=== PATIENT | female | born 1940 | race Caucasian/White ===

== ENCOUNTER 2016-10-18 15:28 | Emergency (ER) | payer MEDICARE ==
[2016-10-18 16:23] LABS: #Basophils 0.1 thou/uL (0.0-0.2); #Eosinphils 0.2 thou/uL (0.0-0.7); #Lymphocytes 1.1 thou/uL (1.20-3.40); #Monocytes 0.6 thou/uL (0.11-0.59); #Neutrophils 5.6 thou/uL (1.40-6.50); %Eosinophils 2.8 % (0.0-10.0); %Monocytes 7.7 % (0.0-10.0); Hematocrit 39.8 % (36.0-47.0); Mean Platelet Volume 6.9 fL (7.4-10.4); Red Blood Cell (RBC) Count 3.91 mill/uL (4.20-5.40); White Blood Cell (WBC) Count 7.6 thou/uL (4.8-10.8)
[2016-10-18 16:31] LABS: PTT 27.1 SEC (22.9-36.1); Prothrombin Time 13.6 SEC (12.0-14.7)
[2016-10-18] MEDS ORDERED: Acetaminophen 500 MG TAB ONE (17:06)
[2016-10-18] MEDS ORDERED: traMADol HCl 50 MG TAB ONE (17:06)
--- NOTE | 2016-10-18 18:36 | ERRECORD ---
[facility] EMERGENCY RECORD HPI FALL (15:54 JPIP) CHIEF COMPLAINT: Patient presents for evaluation of fall, from standing, landing on hard surface, landing on head, Patient presents for evaluation of Patient had a mechanical fall and landed on the back of her head. HISTORIAN: History provided by patient. LOCATION: Symptoms are localized, most severe to occipital area of her head and mild pain in her neck. she states she bumped her right elbow also. TIME COURSE: Sudden onset of symptoms, 1, hours prior to arrival, There has been no change in the patient's symptoms over time, are constant. SEVERITY: Current severity of pain rated as 7/10. ASSOCIATED WITH: Associated with neck pain, mild, No associated chest pain, No associated abdominal pain, No associated back pain, No associated clavicle pain, No associated shoulder pain, Associated with elbow pain, on the right, No associated wrist pain, No associated hand pain, No associated finger pain, No associated hip pain, No associated knee pain, No associated ankle pain, No associated foot pain, No associated abrasion(s), Associated with contusion(s), to the scalp, Associated with occipital area, No associated alcohol use, No associated blurred vision, No associated loss of consciousness, No associated near syncope, No associated neurological symptoms prior to arrival, No associated numbness, No associated syncope, No associated vomiting. EXACERBATED BY: Patient's condition exacerbated by head reasting on the contused area. RELIEVED BY: Patient's condition relieved by nothing. RISK FACTORS: Risk factors for spinal injury, include age, Risk factors for intracranial bleed, include age and coumadin thereapy. ROS (15:58 JPIP) CONSTITUTIONAL: Historian denies lethargy. EYES: Historian denies eye redness, denies vision changes. ENT: Historian denies epistaxis, denies otorrhea, denies rhinorrhea. CARDIOVASCULAR: Historian denies chest pain, denies syncope. RESPIRATORY: Historian denies cough, denies shortness of breath. GI: Historian denies abdominal pain, denies nausea, denies vomiting. GENITOURINARY FEMALE: Historian denies incontinence. MUSCULOSKELETAL: Historian denies back pain, reports fall, reports injury, reports neck pain. NEUROLOGIC: Historian denies confusion, denies dizziness, reports headache, denies lethargy, denies mental status changes, denies paresthesias. NOTES: All systems reviewed, negative except as described above. &a-1R&a+25V*p+0X*w6669T*c202B*c15G*c2P*p-0X&a-25V&a+1R Name: Estefany Santos : 1940 F76 MedRec: [id number] AcctNum: [id number] Prepared: Sadia Oct 18, 2016 18:33 by Interface Page 1 of 5 pMD [facility] EMERGENCY RECORD PAST MEDICAL HISTORY MEDICAL HISTORY: Notes: TIA, Past medical history includes cardiac history, coronary artery disease, arrhythmia, atrial fibrillation, Past medical history includes endocrine disease, hypothyroidism, Past medical history includes gastrointestinal disease, gastroesophageal reflux disease, Past medical history includes hematological history, iron deficiency anemia, Past medical history includes history of hyperlipidemia, history of hypertension. (15:35 KMOR) FEMALE SURGICAL HISTORY: left shoulder surgery , knee surgery, pacemaker, Surgical history of cholecystectomy, Surgical history of hysterectomy. (15:35 KMOR) PSYCHIATRIC HISTORY: Psychiatric history includes, depression. (15:35 KMOR) SOCIAL HISTORY: Patient denies alcohol use, Patient denies drug use, Patient has no smoking history. (15:35 KMOR) NOTES: Nursing records reviewed, Medication list reviewed. (16:04 JPIP) KNOWN ALLERGIES codeine sulfate: Reaction: Rash Lortab: Reaction: Nausea CURRENT MEDICATIONS alendronate: TABLET : Strength - 70 mg : ORAL Patient Dose: 70 mg Oral once a week. (15:41 KMOR) atorvastatin: TABLET : Strength - 10 mg : ORAL Patient Dose: 10 mg Oral once a day. (15:41 KMOR) Ambien: TABLET : Strength - 5 mg : ORAL Patient Dose: 5 mg Oral once a day (at bedtime). (15:41 KMOR) Elavil: TABLET : Strength - 100 mg : ORAL Patient Dose: 100 mg Oral once a day (at bedtime). (15:42 KMOR) Vitamin D2: CAPSULE : Strength - 1,000 unit : ORAL Patient Dose: 2000 units Oral once a day. (15:43 KMOR) iron: CAPSULE : Strength - 40 mg : ORAL Patient Dose: 25 mg Oral once a day. (15:43 KMOR) levothyroxine: TABLET : Strength - 137 mcg : ORAL Patient Dose: 137 mcg Oral once a day. (15:43 KMOR) sotalol: &a-1R&a+25V*p+0X*c5181C*c202B*c15G*c2P*p-0X&a-25V&a+1R Name: Estefany Santos : 1940 F76 MedRec: [id number] AcctNum: [id number] Prepared: Sadia Oct 18, 2016 18:33 by Interface Page 2 of 5 pMD [facility] EMERGENC[facility] RECORD TABLET : Strength - 120 mg : ORAL Patient Dose: 120 mg Oral once a day. (15:44 KMOR) furosemide: TABLET : Strength - 40 mg : ORAL Patient Dose: 40 mg once a day. (15:44 KMOR) omeprazole: CAPSULE,DELAYED RELEASE (ENTERIC COATED) : Strength - 20 mg : ORAL Patient Dose: 20 mg once a day. (15:45 KMOR) Coreg: TABLET : Strength - 6.25 mg : ORAL Patient Dose: 6.25 mg Oral 2 times a day. (15:45 KMOR) Coumadin: TABLET : Strength - 10 mg : ORAL Patient Dose: 10 mg Oral.as directed. (15:46 KMOR) VITAL SIGNS VITAL SIGNS: BP: 156/80, Pulse: 72, Resp: 18, Temp: 98.1 (Oral), Time: 10/18/2016 15:30. (15:30 KMOR) Pain: 7, O2 sat: 99 on Room Air, Time: 10/18/2016 15:57. (15:57 KMOR) BP: 117/51, Pulse: 61, Resp: 18, O2 sat: 99 on Room Air, Time: 10/18/2016 16:26. (16:26 KMOR) BP: 119/63, Pulse: 57, Resp: 16, Pain: 5, O2 sat: 97 on Room Air, Time: 10/18/2016 17:00. (17:00 KMOR) BP: 105/71, Pulse: 64, Resp: 16, Temp: 98.3 (Oral), Pain: 4, O2 sat: 100 on Room Air, Time: 10/18/2016 18:10. (18:10 LSMI) (18:29 LSMI) PHYSICAL EXAM (15:59 JP) CONSTITUTIONAL: Vital signs reviewed, Patient afebrile, Pulse normal, Blood pressure normal, Respiratory rate normal, Patient appears in pain, in mild pain distress, Patient alert and oriented to person, place and time. HEAD: Head exam included findings of, no Gonzalez's sign, No raccoon eyes, Contusion to occipital, No abrasions, No lacerations, normocephalic. EYES: Eye exam included findings of eyelids normal to inspection, Pupils not equally round and reactive to light, Left pupil 2 mm in size, round in shape, Right pupil 2 mm in size, round in shape, BRUCE intraocular lens implants, Conjunctiva normal, Sclera normal, no periorbital ecchymosis, no periorbital edema, no periorbital erythema. ENT: Ear exam normal, external ear normal, tympanic membranes normal, no foreign body, no drainage, no bleeding, Pharynx exam normal, not injected, no swelling, symmetrical, Uvula exam normal, midline, no edema, Mouth exam normal, mucous membranes moist, Teeth with, dentures. NECK: Neck exam included findings of, range of motion limited by cervical collar, Trachea midline, no tenderness. RESPIRATORY CHEST: Respiratory exam included findings of no respiratory distress, Breath sounds clear, No wheezing, No rales, No &a-1R&a+25V*p+0X*t6875X*c202B*c15G*c2P*p-0X&a-25V&a+1R Name: Estefany Santos : 1940 F76 MedRec: [id number] AcctNum: [id number] Prepared: [facility] Oct 18, 2016 18:33 by Interface Page 3 of 5 pMD [facility] EMERGENCY RECORD rhonchi, Breath sounds not absent, Breath sounds not diminished. CARDIOVASCULAR: Cardiovascular exam included findings of heart rate regular rate and rhythm, Heart sounds normal, no murmurs, no rub. ABDOMEN FEMALE: Abdominal exam included findings of abdomen nontender, Liver normal, Spleen normal, no distension, no mass, no pulsatile masses, no peritoneal signs, no rigidity, no guarding, no rebound. BACK: Back exam included findings of normal inspection, no tenderness, no costovertebral angle tenderness. UPPER EXTREMITY: Upper extremity exam included findings of inspection abnormal, contusions present, very superficial abrasion to the right elbow. 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 LOWER EXTREMITY: Left pelvis exam normal, Right pelvis exam normal, Left hip exam normal, Right hip exam normal, Left thigh exam normal, Right thigh exam normal, Left knee exam normal, Right knee exam normal, Left lower leg exam normal, Right lower leg exam normal, Left ankle exam normal, Right ankle exam normal, Left foot exam normal, Right foot exam normal. NEURO: Neuro exam findings include patient oriented to person, place and time, Te[place]dale coma scale 15, Speech normal. SKIN: Skin exam included findings of skin warm, dry, and normal in color, very superficial abrasion to the right elbow and proximal ulna. PSYCHIATRIC: Psychiatric exam included findings of patient oriented to person place and time, Normal affect. RADIOLOGYINTERPRETATION (16:04 JPIP) HEAD: Head CT negative, without contrast, no bleed, no mass, no acute changes. NECK: Cervical spine CT negative, no fracture, no subluxation, no bony lesion, no cord compression. ICE RINK ATTENDANT: Preliminary review of CT scans by, Radiologist. MEDICATION ADMINISTRATION SUMMARY Drug Name: *Tylenol Extra Strength, Dose Ordered: 1 g, Route: Oral, Status: Given, Time: 17:09 10/18/2016, Drug Name: *traMADol, Dose Ordered: 100 mg, Route: Oral, Status: Given, Time: 17:08 10/18/2016, *Additional information available in notes, Detailed record available in Medication Service section. DOCTOR NOTES (15:58 JPIP) TEXT: Backboard removed by ED with spinal stabilization. PROBLEM LIST No recorded problems &a-1R&a+25V*p+0X*l9605C*c202B*c15G*c2P*p-0X&a-25V&a+1R Name: Estefany Santos : 1940 F76 MedRec: [id number] AcctNum: [id number] Prepared: [facility] Oct 18, 2016 18:33 by Interface Page 4 of 5 pMD [facility] EMERGENC[facility] RECORD DIAGNOSIS (16:49 JPIP) FINAL: PRIMARY: Head injury, no LOC, ADDITIONAL: elbow abrasion, elbow contusion, scalp hematoma. PRESCRIPTION No recorded prescriptions DISPOSITION PATIENT: Disposition Type: Discharge, Disposition: *Discharge Home, Condition: Good. (16:49 BENY) Patient left the department. (18:31 KMSANTI) Martínez: BENY=DO Overton Joseph KMOR=BRANDON Yu, Fide LSMI=REBEKAH Ellis Leah &a-1R&a+25V*p+0X*c3815V*c202B*c15G*c2P*p-0X&a-25V&a+1R Name: Estefany Santos : 1940 F76 MedRec: [id number] AcctNum: [id number] Prepared: Sadia Oct 18, 2016 18:33 by Interface Page 5 of 5 pMD MTDD
--- NOTE | 2016-10-18 18:42 | PICIS ---
[facility] EMERGENCY RECORD TRIAGE (SatOct 18, 2016 15:29 KMOR) TRIAGE NOTES: Fall from standing, hit back of head, no loc. (SatOct 18, 2016 15:29 KMOR) PATIENT: NAME: Estefany Santos, AGE: 76, GENDER: female, : Sat1940, TIME OF GREET: SatOct 18, 2016 15:28, PREFERRED LANGUAGE: Danish, ETHNICITY: Not or , ECODE BILLING MAP: [facility], SSN: [id number], Zip Code: [address], KG WEIGHT: 106.59, PHONE: , , , PERSON ID: [id number], PAYMENT: [employer], PCP: Andrew HORN KRISTI. (SatOct 18, 2016 15:29 KMOR) COMPLAINT: Fall. (SatOct 18, 2016 15:29 KMOR) ADMISSION: URGENCY: 3 Urgent, ADMISSION SOURCE: Home, AMBULANCE: [facility], TRANSPORT: AMBULANCE - [facility], BED: ER -04. (SatOct 18, 2016 15:29 KMOR) ASSESSMENT: Assessment: A&XO4. RR EVEN AND UNLABORED., Symptoms began 30 min ago. (15:35 KMOR) PAIN: Patient complains of pain described as, aching, on a scale 0-10 patient rates pain as 7, Location HEAD. (15:35 KMOR) IMMUNIZATIONS: Flu vaccine up to date, Tetanus not up to date, Pneumococcal vaccine up to date. (15:35 KMOR) SIRS SCORING: Heart Rate 55-109 (0), Temp range 96.8-101.1 (0), respiratory rate 12-24 (0), Mental Status altered: no (0), Infection or Suspected Infection: No. (15:35 KMOR) TRIAGE SCREENING: Patient denies suicidal ideation, Patient denies presence of domestic violence. (15:35 KMOR) LMP: LMP: Hysterectomy. (15:35 KMOR) PROVIDERS: TRIAGE NURSE: Fide Yu RN. (SatOct 18, 2016 15:29 KMOR) VITAL SIGNS: BP 156/80, Pulse 72, Resp 18, Temp 98.1, (Oral), Time 10/18/2016 15:30. (15:30 KMOR) KNOWN ALLERGIES codeine sulfate: Reaction: Rash Lortab: Reaction: Nausea CURRENT MEDICATIONS alendronate: TABLET : Strength - 70 mg : ORAL Patient Dose: 70 mg Oral once a week. (15:41 KMOR) atorvastatin: TABLET : Strength - 10 mg : ORAL Patient Dose: 10 mg Oral once a day. (15:41 KMOR) Ambien: TABLET : Strength - 5 mg : ORAL Patient Dose: 5 mg Oral once a day (at bedtime). (15:41 KMOR) Elavil: TABLET : Strength - 100 mg : ORAL Patient Dose: 100 mg Oral once a day (at bedtime). (15:42 &a-1R&a+25V*p+0X*c3698H*c202B*c15G*c2P*p-0X&a-25V&a+1R Name: Estefany Santos : 1940 F76 MedRec: [id number] AcctNum: [id number] Prepared: [facility] Oct 18, 2016 18:39 by Interface Page 1 of 10 pMD [facility] EMERGENCY RECORD KMOR) Vitamin D2: CAPSULE : Strength - 1,000 unit : ORAL Patient Dose: 2000 units Oral once a day. (15:43 KMOR) iron: CAPSULE : Strength - 40 mg : ORAL Patient Dose: 25 mg Oral once a day. (15:43 KMOR) levothyroxine: TABLET : Strength - 137 mcg : ORAL Patient Dose: 137 mcg Oral once a day. (15:43 KMOR) sotalol: TABLET : Strength - 120 mg : ORAL Patient Dose: 120 mg Oral once a day. (15:44 KMOR) furosemide: TABLET : Strength - 40 mg : ORAL Patient Dose: 40 mg once a day. (15:44 KMOR) omeprazole: CAPSULE,DELAYED RELEASE (ENTERIC COATED) : Strength - 20 mg : ORAL Patient Dose: 20 mg once a day. (15:45 KMOR) Coreg: TABLET : Strength - 6.25 mg : ORAL Patient Dose: 6.25 mg Oral 2 times a day. (15:45 KMOR) Coumadin: TABLET : Strength - 10 mg : ORAL Patient Dose: 10 mg Oral.as directed. (15:46 KMOR) VITAL SIGNS VITAL SIGNS: BP: 156/80, Pulse: 72, Resp: 18, Temp: 98.1 (Oral), Time: 10/18/2016 15:30. (15:30 KMOR) Pain: 7, O2 sat: 99 on Room Air, Time: 10/18/2016 15:57. (15:57 KMOR) BP: 117/51, Pulse: 61, Resp: 18, O2 sat: 99 on Room Air, Time: 10/18/2016 16:26. (16:26 KMOR) BP: 119/63, Pulse: 57, Resp: 16, Pain: 5, O2 sat: 97 on Room Air, Time: 10/18/2016 17:00. (17:00 KMOR) BP: 105/71, Pulse: 64, Resp: 16, Temp: 98.3 (Oral), Pain: 4, O2 sat: 100 on Room Air, Time: 10/18/2016 18:10. (18:10 LSMI) (18:29 LSMI) NURSING ASSESSMENT: NEURO (15:38 KMOR) GCS: (6) Obeying command:, (5) Orientated:, (4) Spontaneous eye opening., Result: 15. CONSTITUTIONAL: Patient arrives, via stretcher, via [facility], Unsteady gait, Lift to cart, History obtained from patient, Patient appears, uncomfortable, Patient cooperative, Patient alert, Oriented to person, place and time, Skin warm, Skin dry, Skin normal in color, Mucous membranes pink, Mucous membranes moist, Patient is well-groomed, Patient complains of Fall, Patient reports tripping over feet while walking and falling and hitting head. No loc, no nausea or vomiting. &a-1R&a+25V*p+0X*p7218M*c202B*c15G*c2P*p-0X&a-25V&a+1R Name: Estefany Santos Brenden : 1940 F76 MedRec: [id number] AcctNum: [id number] Prepared: [facility] Oct 18, 2016 18:39 by Interface Page 2 of 10 pMD [facility] EMERGENCY RECORD PAIN: aching pain, throbbing pain, to the occipital region, on a scale 0-10 patient rates pain as 7. NEURO: Pupils equally round and reactive to light, Left pupil 2 mm in size, Right pupil 2 mm in size, Able to close eyes, Face symmetrical, Speech normal, no ptosis, no nystagmus, no facial numbness, no swelling, GCS:, Eye opening: (4) - Spontaneous, Verbal: (5) - Oriented/conversive, Motor: (6) - Obeys commands/Spontaneous, GCS Total: 15, Hand grasps equal, Foot press equal, no associated dizziness present, no associated syncopal episode, no associated vomiting, no associated weakness, Notes: hematoma to left back of head. No open lacerations. ENT: Ear assessment findings include ear normal to inspection, Nasal assessment findings include nose normal to inspection, Sinuses normal, Nasal mucosa normal, Mouth and throat assessment findings include mouth inspection normal, Uvula normal, Tonsils normal, Mucous membranes pink, and moist, Able to swallow, Speech normal. NOTES: Patient tolerated procedure well. NURSING PROCEDURE: COMMUNICATIONS (16:02 LSMI) COMMUNICATIONS: Physician, DR MCCABE CALLED WITH CT REPORT NEGATIVE CT HEAD AND C SPINE. DR OVERTON AWARE. NURSING PROCEDURE: DISCHARGE NOTE (18:10 LSMI) DISCHARGE: Patient discharged to home, in a wheelchair, family driving, accompanied by //partner, Summary of Care printed/ provided, Transition record given to patient, Discharge instructions given to patient, Simple or moderate discharge teaching performed. NURSING PROCEDURE: NEURO CHECK (16:48 KMOR) GCS/NEURO/PUPILS: [place] Coma Scale:, Eye opening: (4) - Spontaneous, Verbal: (5) - Oriented/conversive, Motor: (6) - Obeys commands/Spontaneous, GCS Total: 15, Neuro check findings include movement normal to all extremities, Pupils equally round and reactive to light. NOTES: Patient tolerated procedure well. NURSING PROCEDURE: NURSE NOTES NURSES NOTES: Notes: Ice pack applied to back of head. (16:35 KMOR) Notes: Dr. Overton in to review results with patient. (16:48 KMOR) Notes: Patient resting back in bed, rr even and unlabored. awaiting to return for discharge, Denies needs at this time. (17:41 KMOR) NURSING PROCEDURE: SPINE PRECAUTIONS PATIENT IDENTIFIER: Patient actively involved in identification process, Patient's identity verified by patient stating name, &a-1R&a+25V*p+0X*q4142W*c202B*c15G*c2P*p-0X&a-25V&a+1R Name: Estefany Santos : 1940 F76 MedRec: [id number] AcctNum: [id number] Prepared: SatOct 18, 2016 18:39 by Interface Page 3 of 10 pMD [facility] EMERGENCY RECORD Patient's identity verified by patient stating date. 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 (15:37 KMOR) REMOVAL: Long board removed, by order from Dr. Dr. Overton, removed by Dr. Overton. (15:37 KMOR) Cervical collar removed, by order from Dr. Overton, removed by Dr. Overton. (16:05 KMOR) FOLLOW-UP: After procedure, airway patent, After procedure, movement to extremities, After procedure, no numbness to extremities, After procedure, no tingling to extremities. (16:07 KMOR) NURSING PROCEDURE: TRANSPORT TO TESTS PATIENT IDENTIFIER: Patient actively involved in identification process, Patient's identity verified by patient stating name, Patient's identity verified by patient stating date. (15:43 KMOR) TRANSPORT TO TESTS: Transport indicated to facilitate diagnosis, Patient transported to CT scan, via cart, Accompanied by x-ray nanotechnician. (15:43 KMOR) FOLLOW-UP: After procedure, patient returned to emergency department. (15:55 KMOR) ORDER DETAILS Order Name: B type Natriuretic Peptide, Status: Active, Time: 15:58 10/18/2016, User: BENY, - Ordered for: DO Overton Joseph, - Entered by: DO Overton Joseph - SatOct 18, 2016 15:58, - Quantity: 1, Order Name: CBC with Differential, Status: Active, Time: 15:58 10/18/2016, User: BENY, - Ordered for: DO Overton Joseph, - Entered by: DO Overton Joseph - Sadia Oct 18, 2016 15:58, - Quantity: 1, Order Name: COLD THERAPY, Status: Done, Time: 16:32 10/18/2016, User: LILI, - Ordered for: DO Overton Joseph, - Entered by: DO Overton Joseph - [facility] Oct 18, 2016 16:27, - Quantity: 1, Order Name: CT Brain WO Con, Status: Active, Time: 15:32 10/18/2016, User: BENY, - Ordered for: DO Overton Joseph, - Entered by: DO Overton Joseph - [facility] Oct 18, 2016 15:32, - Quantity: 1, Order Name: CT Cervical Spine WO Con, Status: Active, Time: 15:32 10/18/2016, User: BENY, - Ordered for: DO Overton Joseph, &a-1R&a+25V*p+0X*j4166M*c202B*c15G*c2P*p-0X&a-25V&a+1R Name: Estefany Santos : 1940 F76 MedRec: [id number] AcctNum: [id number] Prepared: SatOct 18, 2016 18:39 by Interface Page 4 of 10 D [facility] EMERGENCY RECORD - Entered by: DO Overton Joseph - [facility] Oct 18, 2016 15:32, - Quantity: 1, Order Name: Protime with INR, Status: Active, Time: 15:58 10/18/2016, User: BENY, - Ordered for: DO Overton Joseph, - Entered by: DO Overton Joseph - SatOct 18, 2016 15:58, - Quantity: 1, Order Name: PTT, Status: Active, Time: 15:58 10/18/2016, User: BENY, - Ordered for: DO Overton Joseph, - Entered by: DO Overton Joseph - [facility] Oct 18, 2016 15:58, - Quantity: 1. MEDICATION ADMINISTRATION SUMMARY Drug Name: *Tylenol Extra Strength, Dose Ordered: 1 g, Route: Oral, Status: Given, Time: 17:09 10/18/2016, Drug Name: *traMADol, Dose Ordered: 100 mg, Route: Oral, Status: Given, Time: 17:08 10/18/2016, *Additional information available in notes, Detailed record available in Medication Service section. MEDICATION SERVICE traMADol: Order: traMADol (tramadol HCl) - Dose: 100 mg : Oral POTENTIAL SEVERE INTERACTION: Elavil oral - Reviewed with patient POTENTIAL ALLERGY REACTION: 'Lortab [hydrocodone/hydrocodone bitartrate]', 'codeine sulfate [codeine/codeine sulfate]' - Reviewed with patient Schedule: Now Notes: Read back and verified, Verbal Order Ordered by: Braden Overton DO Entered by: Fide Yu RN [facility] Oct 18, 2016 17:05 , Acknowledged by: Fide Yu RN [facility] Oct 18, 2016 17:05 Documented as given by: Fide Yu RN [facility] Oct 18, 2016 17:08 Patient, Medication, Dose, Route and Time verified prior to administration. Amount given: 100mg, Site: Medication administered P.O., Patient appears Awake and alert- acceptable, Correct patient, time, route, dose and medication confirmed prior to administration, Patient advised of actions and side-effects prior to administration, Allergies confirmed and medications reviewed prior to administration, Patient in position of comfort, Side rails up, Cart in lowest position, Family at bedside. Tylenol Extra Strength: Order: Tylenol Extra Strength (acetaminophen) - Dose: 1 g : Oral POTENTIAL ALLERGY REACTION: 'Lortab [acetaminophen]' - Benefits outweigh risks, Reviewed with patient Schedule: Now Notes: Read back and verified, Verbal Order Ordered by: Braden Overton DO Entered by: Fide Yu RN [facility] Oct 18, 2016 17:03 , &a-1R&a+25V*p+0X*s9906D*c202B*c15G*c2P*p-0X&a-25V&a+1R Name: Estefany Santos : 1940 F76 MedRec: [id number] AcctNum: [id number] Prepared: SatOct 18, 2016 18:39 by Interface Page 5 of 10 pMD [facility] EMERGENCY RECORD Acknowledged by: Fide Yu RN [facility] Oct 18, 2016 17:03 Documented as given by: Fide Yu RN [facility] Oct 18, 2016 17:09 Patient, Medication, Dose, Route and Time verified prior to administration. Amount given: 1000mg, Site: Medication administered P.O., Patient appears Awake and alert- acceptable, Correct patient, time, route, dose and medication confirmed prior to administration, Patient advised of actions and side-effects prior to administration, Allergies confirmed and medications reviewed prior to administration, Patient in position of comfort, Side rails up, Cart in lowest position, Family at bedside. HPI FALL (15:54 JPIP) CHIEF COMPLAINT: Patient presents for evaluation of fall, from standing, landing on hard surface, landing on head, Patient presents for evaluation of Patient had a mechanical fall and landed on the back of her head. HISTORIAN: History provided by patient. LOCATION: Symptoms are localized, most severe to occipital area of her head and mild pain in her neck. she states she bumped her right elbow also. TIME COURSE: Sudden onset of symptoms, 1, hours prior to arrival, There has been no change in the patient's symptoms over time, are constant. SEVERITY: Current severity of pain rated as 7/10. ASSOCIATED WITH: Associated with neck pain, mild, No associated chest pain, No associated abdominal pain, No associated back pain, No associated clavicle pain, No associated shoulder pain, Associated with elbow pain, on the right, No associated wrist pain, No associated hand pain, No associated finger pain, No associated hip pain, No associated knee pain, No associated ankle pain, No associated foot pain, No associated abrasion(s), Associated with contusion(s), to the scalp, Associated with occipital area, No associated alcohol use, No associated blurred vision, No associated loss of consciousness, No associated near syncope, No associated neurological symptoms prior to arrival, No associated numbness, No associated syncope, No associated vomiting. EXACERBATED BY: Patient's condition exacerbated by head reasting on the contused area. RELIEVED BY: Patient's condition relieved by nothing. RISK FACTORS: Risk factors for spinal injury, include age, Risk factors for intracranial bleed, include age and coumadin thereapy. ROS (15:58 JPIP) CONSTITUTIONAL: Historian denies lethargy. EYES: Historian denies eye redness, denies vision changes. ENT: Historian denies epistaxis, denies otorrhea, denies rhinorrhea. &a-1R&a+25V*p+0X*n3091Y*c202B*c15G*c2P*p-0X&a-25V&a+1R Name: Estefany Santos DOB: 1940 F76 MedRec: [id number] AcctNum: [id number] Prepared: SatOct 18, 2016 18:39 by Interface Page 6 of 10 pMD [facility] EMERGENCY RECORD CARDIOVASCULAR: Historian denies chest pain, denies syncope. RESPIRATORY: Historian denies cough, denies shortness of breath. GI: Historian denies abdominal pain, denies nausea, denies vomiting. GENITOURINARY FEMALE: Historian denies incontinence. MUSCULOSKELETAL: Historian denies back pain, reports fall, reports injury, reports neck pain. NEUROLOGIC: Historian denies confusion, denies dizziness, reports headache, denies lethargy, denies mental status changes, denies paresthesias. NOTES: All systems reviewed, negative except as described above. PAST MEDICAL HISTORY MEDICAL HISTORY: Notes: TIA, Past medical history includes cardiac history, coronary artery disease, arrhythmia, atrial fibrillation, Past medical history includes endocrine disease, hypothyroidism, Past medical history includes gastrointestinal disease, gastroesophageal reflux disease, Past medical history includes hematological history, iron deficiency anemia, Past medical history includes history of hyperlipidemia, history of hypertension. (15:35 KMOR) FEMALE SURGICAL HISTORY: left shoulder surgery , knee surgery, pacemaker, Surgical history of cholecystectomy, Surgical history of hysterectomy. (15:35 KMOR) PSYCHIATRIC HISTORY: Psychiatric history includes, depression. (15:35 KMOR) SOCIAL HISTORY: Patient denies alcohol use, Patient denies drug use, Patient has no smoking history. (15:35 KMOR) NOTES: Nursing records reviewed, Medication list reviewed. (16:04 JPIP) PHYSICAL EXAM (15:59 JPIP) CONSTITUTIONAL: Vital signs reviewed, Patient afebrile, Pulse normal, Blood pressure normal, Respiratory rate normal, Patient appears in pain, in mild pain distress, Patient alert and oriented to person, place and time. HEAD: Head exam included findings of, no Gonzalez's sign, No raccoon eyes, Contusion to occipital, No abrasions, No lacerations, normocephalic. EYES: Eye exam included findings of eyelids normal to inspection, Pupils not equally round and reactive to light, Left pupil 2 mm in size, round in shape, Right pupil 2 mm in size, round in shape, BRUCE intraocular lens implants, Conjunctiva normal, Sclera normal, no periorbital ecchymosis, no periorbital edema, no periorbital erythema. ENT: Ear exam normal, external ear normal, tympanic membranes normal, no foreign body, no drainage, no bleeding, Pharynx exam normal, not injected, no swelling, symmetrical, Uvula exam normal, &a-1R&a+25V*p+0X*z2211A*c202B*c15G*c2P*p-0X&a-25V&a+1R Name: Estefany Santos : 1940 F76 MedRec: [id number] AcctNum: [id number] Prepared: [facility] Oct 18, 2016 18:39 by Interface Page 7 of 10 pMD [facility] EMERGENCY RECORD midline, no edema, Mouth exam normal, mucous membranes moist, Teeth with, dentures. NECK: Neck exam included findings of, range of motion limited by cervical collar, Trachea midline, no tenderness. RESPIRATORY CHEST: Respiratory exam included findings of no respiratory distress, Breath sounds clear, No wheezing, No rales, No rhonchi, Breath sounds not absent, Breath sounds not diminished. CARDIOVASCULAR: Cardiovascular exam included findings of heart rate regular rate and rhythm, Heart sounds normal, no murmurs, no rub. ABDOMEN FEMALE: Abdominal exam included findings of abdomen nontender, Liver normal, Spleen normal, no distension, no mass, no pulsatile masses, no peritoneal signs, no rigidity, no guarding, no rebound. BACK: Back exam included findings of normal inspection, no tenderness, no costovertebral angle tenderness. UPPER EXTREMITY: Upper extremity exam included findings of inspection abnormal, contusions present, very superficial abrasion to the right elbow. 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 LOWER EXTREMITY: Left pelvis exam normal, Right pelvis exam normal, Left hip exam normal, Right hip exam normal, Left thigh exam normal, Right thigh exam normal, Left knee exam normal, Right knee exam normal, Left lower leg exam normal, Right lower leg exam normal, Left ankle exam normal, Right ankle exam normal, Left foot exam normal, Right foot exam normal. NEURO: Neuro exam findings include patient oriented to person, place and time, Sameer coma scale 15, Speech normal. SKIN: Skin exam included findings of skin warm, dry, and normal in color, very superficial abrasion to the right elbow and proximal ulna. PSYCHIATRIC: Psychiatric exam included findings of patient oriented to person place and time, Normal affect. LAB INTERPRETATION (16:46 JPIP) INTERPRETATION: I reviewed the lab results, CBC abnormal, White blood cell count normal, Hemoglobin normal, Hematocrit normal, MCV 102. MCH 33.5, Cardiac enzymes abnormal, BNP elevated, PT normal, PTT normal. EVENTS TRANSFER: Triage to Emergency Emergency Room -04. (Sadia Oct 18, 2016 15:29 KMOR) Removed from Emergency Emergency Room -04. (18:31 KMOR) RADIOLOGYINTERPRETATION (16:04 JPIP) HEAD: Head CT negative, without contrast, no bleed, no mass, no acute changes. &a-1R&a+25V*p+0X*g4135F*c202B*c15G*c2P*p-0X&a-25V&a+1R Name: Estefany Santos : 1940 F76 MedRec: [id number] AcctNum: [id number] Prepared: [facility] Oct 18, 2016 18:39 by Interface Page 8 of 10 pMD [facility] EMERGENCY RECORD NECK: Cervical spine CT negative, no fracture, no subluxation, no bony lesion, no cord compression. CONFERENCE PLANNER: Preliminary review of CT scans by, Radiologist. O2SAT INTERPRETATION (15:58 JPIP) O2SAT: Single pulse oximetry, Oxygen saturation 99%, on room air, Oxygen saturation interpretation: Normal, No intervention required. DOCTOR NOTES (15:58 JPIP) TEXT: Backboard removed by ED with spinal stabilization. PROBLEM LIST No recorded problems DIAGNOSIS (16:49 JPIP) FINAL: PRIMARY: Head injury, no LOC, ADDITIONAL: elbow abrasion, elbow contusion, scalp hematoma. DISPOSITION PATIENT: Disposition Type: Discharge, Disposition: *Discharge Home, Condition: Good. (16:49 JPIP) Patient left the department. (18:31 KMOR) INSTRUCTION (16:47 JPIP) DISCHARGE: CLOSED HEAD INJURY NO WAKEUP ADULT, ELBOW CONTUSION. FOLLOWUP: Andrew HORN, TG, [facility] [id number], [phone]. SPECIAL: Follow up with Primary Care Physician within 72 hours Take your pain medication as needed, Return to the Emergency Department for increased symptoms problems or concerns Take acetaminophen for pain. PRESCRIPTION No recorded prescriptions IMAGING (18:32 LSMI) *DISCHARGE INSTRUCTIONS RECEIPT: Image captured from scanner. *SUPPLY CHARGE SHEET: Image captured from scanner. RESULTS LABORATORY: CBC with Differential Collection DT: SatOct 18, 2016 16:21, White Blood Cell (WBC) Count 7.6 thou/uL, Range (4.8-10.8), *Red Blood Cell (RBC) Count 3.91 - L mill/uL, Range (4.20-5.40), Hemoglobin 13.1 g/dL, Range (12.0-16.0), Hematocrit 39.8 %, Range (36.0-47.0), *Mean Corpuscular Volume 102.0 - H fl, Range (81.0-99.0), *Mean Corpuscular Hemoglobin 33.5 - H pg, Range (27.0-31.0), &a-1R&a+25V*p+0X*v0284Q*c202B*c15G*c2P*p-0X&a-25V&a+1R Name: Estefany Santos : 1940 F76 MedRec: [id number] AcctNum: [id number] Prepared: SatOct 18, 2016 18:39 by Interface Page 9 of 10 pMD [facility] EMERGENCY RECORD Mean Corpuscular HGB CONC 32.9 g/dL, Range (32.0-36.0), RBC Distribution Width 12.2 %, Range (11.5-14.5), Platelet Count 273 thou/uL, Range (130-400), *Mean Platelet Volume 6.9 - L fL, Range (7.4-10.4), %Neutrophils 73.6 %, Range (42.0-75.0), *%Lymphocytes 14.9 - L %, Range (21.0-51.0), %Monocytes 7.7 %, Range (0.0-10.0), %Eosinophils 2.8 %, Range (0.0-10.0), %Basophils 1.0 %, Range (0.0-1.0), #Neutrophils 5.6 thou/uL, Range (1.40-6.50), *#Lymphocytes 1.1 - L thou/uL, Range (1.20-3.40), *#Monocytes 0.6 - H thou/uL, Range (0.11-0.59), #Eosinphils 0.2 thou/uL, Range (0.0-0.7), #Basophils 0.1 thou/uL, Range (0.0-0.2). (16:27 JPIP) B type Natriuretic Peptide Collection DT: SatOct 18, 2016 16:21, *B type Natriuretic Peptide 171.5 - H pg/mL, Range (0-100). (16:45 JPIP) PTT Collection DT: SatOct 18, 2016 16:21, See comment below , Anticoagulant? WARFARIN (COUMADIN) Medical Necessity SUSPECT COAGULOPATHY , PTT 27.1 SEC, Range (22.9-36.1). (16:45 JPIP) Protime with INR Collection DT: SatOct 18, 2016 16:21, See comment below , Anticoagulant? WARFARIN (COUMADIN) Medical Necessity SUSPECT COAGULOPATHY , Prothrombin Time 13.6 SEC, Range (12.0-14.7), INR-International Normal Ratio 1.0 , ATTENTION: READ CAREFULLY , The, recommended therapeutic ranges for oral anticoagulant treatments are: , , Low Intensity: 1.5 - 2.0 Moderate Intensity: 2.0, - 3.0 High Intensity (1): 2.5 - 3.5 High, Intensity (2): 3.0 - 4.0 CRITICAL: >, 4.0 . (16:45 JPIP) Martínez: JPIP=DO Overton Joseph KMOR=BRANDON Yu, Fide LSMI=REEBKAH Ellis Leah &a-1R&a+25V*p+0X*h3804S*c202B*c15G*c2P*p-0X&a-25V&a+1R Name: Estefany Santos : 1940 F76 MedRec: [id number] AcctNum: [id number] Prepared: Sadia Oct 18, 2016 18:39 by Interface Page 10 of 10 pMD MTDD
--- NOTE | 2016-10-18 21:12 | CT ---
CT OF THE BRAIN WITHOUT CONTRAST 10/18/16 Comparison is made with the 05/29/11 study done at [facility]. The ventricles are normal in size with no shift. No intracranial bleeding or extra-axial hematoma wa s seen. No mass or stroke was apparent. There is some patchy deep white matter lucency bilaterally w hich was also seen before. This is consistent with chronic microvascular ischemic change. There is a little mucosal thickening in the ethmoid sinuses. Some of the mastoid air cells near the mastoid ti p on the left side are semi opaque. No fracture was seen. IMPRESSION: Chronic changes but no acute findings. POS: HOME
--- NOTE | 2016-10-18 21:18 | CT ---
CT CERVICAL SPINE 10/18/[address] of the cervical spine was performed following trauma. The patient has had an anterior cerv ical fusion at C5-6-7 and a posterior cervical fusion from C3 through about T1 or T2. The hardware p articularly causes severe artifact over the lower cervical spine. As the result, the sensitivity her e is very low. In spite of these limitations, no fracture was apparent. There is no dislocation or soft tissue swel ling. The C1 to dens distance is normal. Findings by level follow: C1-C2: No acute findings. C2-C3: Severe facet changes but only mild left foraminal stenosis. C3-C4: Severe facet changes with laminectomy at this level and severe bilateral foraminal stenosis. C4-C5: Laminectomy present. Moderate bilateral foraminal narrowing. C5-C6: There is some mild left foraminal narrowing. Laminectomy is present. Streak artifact at this level is beginning to get very severe and small fractures would be missed. Below this level, one can only see the vertebrae faintly. No gross fractures are identified but manoj le additional detail could be confidently added. IMPRESSION: Postop changes that cause severe artifact, particularly from about C5 and below. No gross acute trau matic findings. POS: HOME
== END 2016-10-18 18:10 | disposition home or self-care (01) ==
LOC: BURERS 15:28
DX: S00.03XA Contusion of scalp, initial encounter (principal); S50.01XA Contusion of right elbow, initial encounter; S50.311A Abrasion of right elbow, initial encounter; I48.91 Unspecified atrial fibrillation; E03.9 Hypothyroidism, unspecified; K21.9 Gastro-esophageal reflux disease without esophagitis; F32.9 Major depressive disorder, single episode, unspecified; W18.30XA Fall on same level, unspecified, initial encounter
CPT/HCPCS: 70450; 72125; 83880; 85025; 85610; 85730

== ENCOUNTER 2016-11-16 08:40 | Outpatient (CLI) | payer MEDICARE ==
--- NOTE | 2016-11-16 20:17 | CT ---
CT OF THE BRAIN WITHOUT CONTRAST 11/16/16 Comparison is made with the 10/18/16 study. There has been no adverse interval change. The ventricles are normal in size for age and show no lurdes ft. Patchy deep white matter lucency is consistent with chronic microvascular ischemia, and perhaps even a few small lacunar infarcts. The appearance is essentially unchanged from before. There is no sign of bleeding. No subdural hematoma was indicated. No mass or edema was seen. The calvarium appears intact with no sign of fracture. The visible paranasal sinuses are clear. The bulk of the mastoid air cells are clear. The tip of the left mastoid process is not quite as aerated as the remainder, however, it is no different in appearance than the prior CT. Looking back at an e hannah older CT of 02/11/12, there has been no change in the appearance of the mastoid air cells over ti me. IMPRESSION: Stable exam showing chronic ischemic changes but no acute findings. POS: HOME
--- NOTE | 2016-11-16 20:21 | ULT ---
CAROTID ULTRASOUND 11/16/16 Color duplex doppler ultrasonography of the carotid and vertebral system was performed for evaluatio n of vertigo. The patient does have some vertebral artery calcifications on CT. The 2D images of the carotid arteries show a little intimal thickening around each carotid bifurcation, but no large obs tructing plaques were seen. There was good flow in all segments. There was no evidence of significan t stenosis in any segment. The peak flow in the right ICA was 51/16 with a systolic velocity ratio o f 0.8 which is normal. The peak flow in the left ICA was 94/32 with an systolic velocity ratio of 1. 0. This is normal. All other segments showed normal flow. Vertebral flow was antegrade bilaterally. IMPRESSION: No significant stenosis or other findings of concern. POS: HOME
== END 2016-11-16 08:41 | disposition home or self-care (01) ==
LOC: BURCT 08:40
PROVIDERS: ATTEND Family Medicine
DX: I25.10 Atherosclerotic heart disease of native coronary artery without angina pectoris (principal); R42 Dizziness and giddiness
CPT/HCPCS: 70450; 93880

== ENCOUNTER 2017-01-17 08:37 | Outpatient (CLI) | payer MEDICARE ==
[2017-01-17 16:35] LABS: #Basophils 0.1 thou/uL (0.0-0.2); #Eosinphils 0.3 thou/uL (0.0-0.7); #Lymphocytes 1.1 thou/uL (1.20-3.40); #Monocytes 0.6 thou/uL (0.11-0.59); #Neutrophils 4.1 thou/uL (1.40-6.50); %Basophils 1.1 % (0.0-1.0); %Eosinophils 4.4 % (0.0-10.0); %Neutrophils 67.5 % (42.0-75.0); Hemoglobin 14.9 g/dL (12.0-16.0); Mean Corpuscular HGB CONC 32.1 g/dL (32.0-36.0); Mean Corpuscular Hemoglobin 31.9 pg (27.0-31.0); Mean Corpuscular Volume 99.5 fl (81.0-99.0); Mean Platelet Volume 8.5 fL (7.4-10.4); Platelet Count 174 thou/uL (130-400); RBC Distribution Width 11.9 % (11.5-14.5); Red Blood Cell (RBC) Count 4.68 mill/uL (4.20-5.40); White Blood Cell (WBC) Count 6.1 thou/uL (4.8-10.8)
[2017-01-17 17:32] LABS: ALT (SGPT) 11 U/L (0-55); AST (SGOT) 25 U/L (5-34); Albumin 3.7 g/dL (3.4-4.8); Alkaline Phosphatase 121 U/L (40-150); Anion Gap 13 mmol/L (10-20); BUN (Urea Nitrogen) 26 mg/dL (9.8-20.1); Bilirubin, Total 0.5 mg/dL (0.2-1.2); Calc. Creatinine Clearance 0 mL/min (70-130); Calcium 8.7 mg/dL (7.8-10.44); Carbon Dioxide 29 mmol/L (23-31); Cardiac Risk 3.5 (Less than 4.5); Chloride 104 mmol/L (98-107); Cholesterol 130 mg/dL (< 200 Desired); Estimated GFR-MDRD 51; Globulin 2.4 g/dL (2.4-3.5); Glucose 89 mg/dL (83-110); HDL Cholesterol 37 mg/dL (>60 Neg Risk); LDL Cholesterol, Calculated 68 mg/dL; Potassium 4.9 mmol/L (3.5-5.1); Protein, Total 6.1 g/dL (5.8-8.1); Sodium 141 mmol/L (136-145); Triglycerides 125 mg/dL (Less than 150)
[2017-01-17 18:05] LABS: Iron 66 ug/dL (50-170); Iron Binding Capacity, Total 336 mcg/dL (265-497)
[2017-01-17 18:17] LABS: Thyroid Stimulating Hormone 2.9508 uIU/mL (0.35-4.94); Vitamin D, 25 Hydroxy 33.9 ng/mL (> 30.0)
== END 2017-01-17 08:38 ==
LOC: LABLEX 08:37
PROVIDERS: ATTEND Family Medicine
DX: E03.9 Hypothyroidism, unspecified (principal); E78.5 Hyperlipidemia, unspecified; D64.9 Anemia, unspecified; E55.9 Vitamin D deficiency, unspecified; I10 Essential (primary) hypertension; I25.10 Atherosclerotic heart disease of native coronary artery without angina pectoris
CPT/HCPCS: 80053; 80061; 82306; 83540; 83550; 84443; 85025

== ENCOUNTER 2017-03-11 11:10 | Emergency (ER) | payer MEDICARE ==
[2017-03-11] MEDS ORDERED: Acetaminophen 325 MG TAB ONE (11:35)
--- NOTE | 2017-03-11 18:43 | RAD ---
LEFT SHOULDER THREE VIEWS 03/11/2017 FINDINGS: Since the prior study of 11/22/2008, a shoulder arthroplasty has been placed. There is no acute fra cture or dislocation. The visible portions of the prosthesis and surrounding bone appear normal. T he AC joint is normal in width. IMPRESSION: No acute traumatic findings. POS: HOME
--- NOTE | 2017-03-11 19:19 | CT ---
CT BRAIN WITHOUT CONTRAST 03/11/2017 COMPARISON: 11/16/2016 FINDINGS: The ventricular sizes are normal and show no shift. Patchy areas of hypolucency are seen in the jarod p white matter, particularly in the frontal regions, bilaterally. These are consistent with chronic ischemic changes and perhaps old lacunar infarcts. The appearance has not really changed since the prior exam. No intracranial bleeding or extraaxial hematoma is seen. There is no sign of mass or acute stroke. 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 A small area of soft tissue swelling is seen in the scalp, over the left parietal region. The under lying skull is intact. There is no air-fluid level in the sphenoid sinus. IMPRESSION: Chronic ischemic changes but no acute traumatic finding. POS: HOME
== END 2017-03-11 12:25 | disposition home or self-care (01) ==
LOC: BURERS 11:10
DX: S00.03XA Contusion of scalp, initial encounter (principal); S50.12XA Contusion of left forearm, initial encounter; I25.10 Atherosclerotic heart disease of native coronary artery without angina pectoris; I48.91 Unspecified atrial fibrillation; E03.9 Hypothyroidism, unspecified; K21.9 Gastro-esophageal reflux disease without esophagitis; D50.9 Iron deficiency anemia, unspecified; E78.5 Hyperlipidemia, unspecified; I10 Essential (primary) hypertension; F32.9 Major depressive disorder, single episode, unspecified; Z86.73 Personal history of transient ischemic attack (TIA), and cerebral infarction without residual deficits; W01.10XA Fall on same level from slipping, tripping and stumbling with subsequent striking against unspecified object, initial encounter
CPT/HCPCS: 70450

== ENCOUNTER 2017-05-26 10:03 | Emergency (ER) | payer MEDICARE | END 2017-05-26 10:34 | disposition home or self-care (01) | LOC: BURERS 10:03 | DX: S30.92XD Unspecified superficial injury of abdominal wall, subsequent encounter (principal) | CPT/HCPCS: 99283 ==

== ENCOUNTER 2019-08-11 17:11 | Emergency (ER) | payer MEDICARE ==
[2019-08-11 18:10] LABS: #Basophils 0.1 thou/uL (0.0-0.2); #Eosinphils 0.3 thou/uL (0.0-0.7); #Lymphocytes 1.1 thou/uL (1.20-3.40); #Monocytes 0.8 thou/uL (0.11-0.59); %Basophils 0.8 % (0.0-1.0); %Lymphocytes 9.8 % (21.0-51.0); %Monocytes 7.3 % (0.0-10.0); %Neutrophils 79.1 % (42.0-75.0); Hemoglobin 15.6 g/dL (12.0-16.0); Mean Corpuscular HGB CONC 32.3 g/dL (32.0-36.0); Mean Corpuscular Hemoglobin 33.6 pg (27.0-31.0); Mean Platelet Volume 9.4 fL (7.4-10.4); Platelet Count 210 thou/uL (130-400); RBC Distribution Width 11.7 % (11.5-14.5); Red Blood Cell (RBC) Count 4.63 mill/uL (4.20-5.40); White Blood Cell (WBC) Count 11.4 thou/uL (4.8-10.8)
[2019-08-11] MEDS ORDERED: Albuterol Sulfate 1.25 MG/3 ML NEB ONE (18:20)
[2019-08-11 18:24] LABS: Digoxin Less than 0.15 ng/mL (0.8-2.0)
[2019-08-11 18:26] LABS: ALT (SGPT) 28 U/L (8-55); AST (SGOT) 30 U/L (5-34); Albumin 3.8 g/dL (3.4-4.8); Alkaline Phosphatase 112 U/L (40-110); Anion Gap 15 mmol/L (10-20); BUN (Urea Nitrogen) 13 mg/dL (9.8-20.1); Bilirubin, Total 0.7 mg/dL (0.2-1.2); Calc. Creatinine Clearance 0 mL/min (70-130); Calcium 8.1 mg/dL (7.8-10.44); Carbon Dioxide 24 mmol/L (23-31); Chloride 104 mmol/L (98-107); Estimated GFR-MDRD 62; Globulin 3.1 g/dL (2.4-3.5); Glucose 98 mg/dL (83-110); Potassium 4.1 mmol/L (3.5-5.1); Protein, Total 6.9 g/dL (6.0-8.3); Sodium 139 mmol/L (136-145)
[2019-08-11] MEDS ORDERED: cefTRIAXone\\ROCEPHIN 2 GM VIAL ONE (18:30)
[2019-08-11] MEDS ORDERED: methylPREDNISolone Sod Succ/PF 125 MG/2 ML VIAL ONE (18:34)
--- NOTE | 2019-08-11 19:50 | RAD ---
PORTABLE CHEST: 08/11/19 An AP portable film at 1720 is compared with an 08/16/18 study. The heart is stable in size. There is no congestive change or pleural effusion. The lungs are clear. The cardiac pacer remains in place. IMPRESSION: No acute thoracic finding. POS: HOME
== END 2019-08-11 19:48 | disposition home or self-care (01) ==
LOC: BURERS 17:11
DX: J06.9 Acute upper respiratory infection, unspecified (principal); J98.01 Acute bronchospasm; F32.9 Major depressive disorder, single episode, unspecified; E78.5 Hyperlipidemia, unspecified; I10 Essential (primary) hypertension; E78.00 Pure hypercholesterolemia, unspecified; Z86.73 Personal history of transient ischemic attack (TIA), and cerebral infarction without residual deficits; Z79.899 Other long term (current) drug therapy
CPT/HCPCS: 71045; 80053; 80162; 83605; 83880; 84484; 85025; 87040; 93005; 94640; 94760; J0696; J2930; J7620

== ENCOUNTER 2022-09-24 16:43 | Emergency (ER) | payer MEDICARE, OTHER ==
[~2022-09-24 16:43] MED LIST: Iopamidol 370 76% 100 ML VIAL ONE
[2022-09-24 17:11] LABS: #Basophils 0.1 thou/uL (0.0-0.2); #Eosinphils 0.3 thou/uL (0.0-0.7); #Lymphocytes 1.7 thou/uL (1.20-3.40); #Monocytes 0.8 thou/uL (0.11-0.59); #Neutrophils 5.3 thou/uL (1.40-6.50); %Basophils 0.8 % (0.0-1.0); %Eosinophils 3.5 % (0.0-10.0); %Lymphocytes 21.2 % (21.0-51.0); %Monocytes 10.2 % (0.0-10.0); %Neutrophils 64.3 % (42.0-75.0); Hemoglobin 14.5 g/dL (12.0-16.0); MDiff Complete? YES; Macrocytosis SLIGHT = 6-15 cells (100X) (0-5/hpf); Mean Corpuscular HGB CONC 31.5 g/dL (32.0-36.0); Mean Corpuscular Hemoglobin 33.5 pg (27.0-31.0); Mean Platelet Volume 10.9 fL (7.4-10.4); Platelet Count 136 10x3/uL (130-400); RBC Distribution Width 13.3 % (11.5-14.5); Red Blood Cell (RBC) Count 4.34 mill/uL (4.20-5.40); White Blood Cell (WBC) Count 8.2 10x3/uL (4.8-10.8)
[2022-09-24 17:21] LABS: ALT (SGPT) 39 U/L (8-55); AST (SGOT) 47 U/L (5-34); Albumin 3.9 g/dL (3.4-4.8); Alkaline Phosphatase 120 U/L (40-110); Anion Gap 13 mmol/L (10-20); BUN (Urea Nitrogen) 18 mg/dL (9.8-20.1); Bilirubin, Total 0.6 mg/dL (0.2-1.2); Calc. Creatinine Clearance 0 mL/min (70-130); Calcium 8.6 mg/dL (7.8-10.44); Carbon Dioxide 28 mmol/L (23-31); Chloride 104 mmol/L (98-107); Estimated GFR 64; Glucose 74 mg/dL (83-110); Potassium 4.3 mmol/L (3.5-5.1); Protein, Total 6.9 g/dL (5.8-8.1); Sodium 141 mmol/L (136-145)
[2022-09-24] MEDS ORDERED: Vancomycin 1 GM VIAL ONE (18:37)
[2022-09-24] MEDS ORDERED: Azithromycin 500 MG VIAL ONE (19:41)
[2022-09-24] MEDS ORDERED: HYDROcodone/Acetaminophen 5/325 mg Tablet ONE (21:42)
[2022-09-25] MEDS ORDERED: Escitalopram Oxalate 10 mg Tablet PO SCH (01:45)
[2022-09-25] MEDS ORDERED: Digoxin 0.125 MG TAB PO SCH (01:45)
[2022-09-25] MEDS ORDERED: HYDROcodone/Acetaminophen 5/325 mg Tablet ONE (01:46)
[2022-09-25] MEDS ORDERED: Vancomycin 1 GM VIAL ONE (04:13)
[2022-09-25 05:41] LABS: SARS-CoV-2 NAA Rapid Test Not Detected (NotDetected)
[2022-09-25 14:02] LABS: #Eosinphils 0.1 thou/uL (0.0-0.7); #Monocytes 0.7 thou/uL (0.11-0.59); #Neutrophils 7.5 thou/uL (1.40-6.50); %Basophils 0.5 % (0.0-1.0); %Eosinophils 1.5 % (0.0-10.0); %Monocytes 7.6 % (0.0-10.0); %Neutrophils 79.5 % (42.0-75.0); Mean Corpuscular HGB CONC 32.3 g/dL (32.0-36.0); Mean Corpuscular Hemoglobin 33.6 pg (27.0-31.0); Mean Platelet Volume 9.6 fL (7.4-10.4); Platelet Count 109 10x3/uL (130-400); Platelet Morphology Comment Appears Decreased; RBC Distribution Width 13.1 % (11.5-14.5); Red Blood Cell (RBC) Count 4.16 mill/uL (4.20-5.40); White Blood Cell (WBC) Count 9.4 10x3/uL (4.8-10.8)
[2022-09-25 14:05] LABS: MDiff Complete? YES; Manual Diff?? NO
[2022-09-25] MEDS ORDERED: Albuterol Sulfate 2.5 mg/3 ml Neb ONE (14:09)
[2022-09-25] MEDS ORDERED: Albuterol Sulfate 2.5 mg/0.5 ml Neb ONE (14:10)
[2022-09-25 14:13] LABS: Anion Gap 12 mmol/L (10-20)
[2022-09-25] MEDS ORDERED: Cefepime 2 GM VIAL ONE (14:16)
[2022-09-25] MEDS ORDERED: methylPREDNISolone Sod Succ/PF 125 MG/2 ML VIAL ONE (14:16)
[2022-09-25] MEDS ORDERED: Sodium Chloride 0.9% 100 ML ONE (14:18)
[2022-09-25 14:23] LABS: ALT (SGPT) 78 U/L (8-55); AST (SGOT) 113 U/L (5-34); Albumin 3.6 g/dL (3.4-4.8); Alkaline Phosphatase 159 U/L (40-110); BUN (Urea Nitrogen) 11 mg/dL (9.8-20.1); Bilirubin, Total 1.2 mg/dL (0.2-1.2); Calc. Creatinine Clearance 0 mL/min (70-130); Calcium 8.7 mg/dL (7.8-10.44); Carbon Dioxide 31 mmol/L (23-31); Chloride 102 mmol/L (98-107); Estimated GFR 80; Glucose 112 mg/dL (83-110); Potassium 4.6 mmol/L (3.5-5.1); Protein, Total 6.6 g/dL (5.8-8.1); Sodium 140 mmol/L (136-145)
== END 2022-09-25 15:10 | disposition short-term general hospital (02) ==
LOC: BURERS 16:43
DX: J18.9 Pneumonia, unspecified organism (principal); Z20.822 Contact with and (suspected) exposure to COVID-19; E78.00 Pure hypercholesterolemia, unspecified; I10 Essential (primary) hypertension; Z79.899 Other long term (current) drug therapy
CPT/HCPCS: 71045 ×2; 71275; 80053; 83605; 83880; 84484; 85025; 87040; 87149 ×2; 93005; 94760; 96365; 96367; 96374; 96375; 99285; U0002; 36415; 87186; J0456; J0692; J2930; J3370; J3490; J7611; J7620; Q9967

== ENCOUNTER 2022-11-20 15:29 | Emergency (ER) | payer MEDICARE, OTHER ==
[2022-11-20] MEDS ORDERED: Fentanyl 100 MCG/2 ML VIAL ONE ×2 (16:33→18:06)
[2022-11-20 16:37] LABS: #Eosinphils 0.2 thou/uL (0.0-0.7); #Lymphocytes 1.8 thou/uL (1.20-3.40); #Monocytes 0.6 thou/uL (0.11-0.59); #Neutrophils 3.3 thou/uL (1.40-6.50); %Basophils 0.8 % (0.0-1.0); %Eosinophils 2.6 % (0.0-10.0); %Neutrophils 56.5 % (42.0-75.0); Hemoglobin 13.9 g/dL (12.0-16.0); MDiff Complete? YES; Macrocytosis SLIGHT = 6-15 cells (100X) (0-5/hpf); Mean Corpuscular HGB CONC 32.9 g/dL (32.0-36.0); Mean Corpuscular Hemoglobin 34.2 pg (27.0-31.0); Mean Platelet Volume 9.1 fL (7.4-10.4); Platelet Count 113 10x3/uL (130-400); Platelet Morphology Comment Appears Decreased; RBC Distribution Width 13.5 % (11.5-14.5); Red Blood Cell (RBC) Count 4.06 mill/uL (4.20-5.40); White Blood Cell (WBC) Count 5.9 10x3/uL (4.8-10.8)
[2022-11-20 16:39] LABS: INR-International Normal Ratio 1.2; Prothrombin Time 15.5 sec (12.0-14.7)
[2022-11-20 16:48] LABS: ALT (SGPT) 75 U/L (8-55); AST (SGOT) 68 U/L (5-34); Albumin 3.6 g/dL (3.4-4.8); Alkaline Phosphatase 120 U/L (40-110); Anion Gap 9 mmol/L (10-20); BUN (Urea Nitrogen) 16 mg/dL (9.8-20.1); Bilirubin, Total 0.6 mg/dL (0.2-1.2); Calc. Creatinine Clearance 0 mL/min (70-130); Calcium 8.8 mg/dL (7.8-10.44); Carbon Dioxide 31 mmol/L (23-31); Chloride 104 mmol/L (98-107); Estimated GFR 72; Globulin 2.4 g/dL (2.4-3.5); Glucose 115 mg/dL (83-110); Potassium 4.4 mmol/L (3.5-5.1); Sodium 140 mmol/L (136-145)
== END 2022-11-20 19:36 | disposition home or self-care (01) ==
LOC: BURERS 15:29
DX: S00.03XA Contusion of scalp, initial encounter (principal); S00.83XA Contusion of other part of head, initial encounter; I10 Essential (primary) hypertension; E78.00 Pure hypercholesterolemia, unspecified; I48.91 Unspecified atrial fibrillation; E16.2 Hypoglycemia, unspecified; W18.30XA Fall on same level, unspecified, initial encounter; Z95.0 Presence of cardiac pacemaker; Z86.73 Personal history of transient ischemic attack (TIA), and cerebral infarction without residual deficits; Z79.01 Long term (current) use of anticoagulants; Z79.899 Other long term (current) drug therapy
CPT/HCPCS: 36415; 70450; 70486; 80053; 85025; 85610; 96374; 96376; J3010

== ENCOUNTER 2023-03-04 19:55 | Emergency (ER) | payer MEDICARE, OTHER ==
[2023-03-04 20:21] LABS: #Basophils 0.1 thou/uL (0.0-0.2); #Eosinphils 0.2 thou/uL (0.0-0.7); #Lymphocytes 1.3 thou/uL (1.20-3.40); #Monocytes 0.7 thou/uL (0.11-0.59); #Neutrophils 6.1 thou/uL (1.40-6.50); %Basophils 0.6 % (0.0-1.0); %Eosinophils 2.6 % (0.0-10.0); %Lymphocytes 15.9 % (21.0-51.0); %Monocytes 7.8 % (0.0-10.0); Hemoglobin 15.3 g/dL (12.0-16.0); Mean Corpuscular Hemoglobin 33.1 pg (27.0-31.0); Mean Platelet Volume 8.8 fL (7.4-10.4); Platelet Count 131 10x3/uL (130-400); RBC Distribution Width 12.8 % (11.5-14.5); Red Blood Cell (RBC) Count 4.61 mill/uL (4.20-5.40); White Blood Cell (WBC) Count 8.3 10x3/uL (4.8-10.8)
[2023-03-04] MEDS ORDERED: Nitroglycerin 2% Ointment 1 INCH/1 GM Packet ONE (20:22)
[2023-03-04 20:37] LABS: ALT (SGPT) 20 U/L (8-55); AST (SGOT) 27 U/L (5-34); Albumin 3.8 g/dL (3.4-4.8); Alkaline Phosphatase 91 U/L (40-110); Anion Gap 15 mmol/L (10-20); BUN (Urea Nitrogen) 16 mg/dL (9.8-20.1); Bilirubin, Total 1.3 mg/dL (0.2-1.2); Calc. Creatinine Clearance 0 mL/min (70-130); Calcium 9.1 mg/dL (7.8-10.44); Carbon Dioxide 24 mmol/L (23-31); Chloride 107 mmol/L (98-107); Estimated GFR 64; Globulin 2.6 g/dL (2.4-3.5); Glucose 121 mg/dL (83-110); Potassium 3.8 mmol/L (3.5-5.1); Protein, Total 6.4 g/dL (5.8-8.1); Sodium 142 mmol/L (136-145)
[2023-03-04] MEDS ORDERED: Aspirin Chewable 81 MG TAB ONE (20:44)
[2023-03-04 21:00] LABS: Bilirubin Negative (Negative); Blood, Urine Trace (Negative); Glucose, Urine (Dipstick) Negative (Negative); Ketone, Urine Trace mg/dL (Negative); Leukocyte Small (Negative); Nitrite Negative (Negative); Protein, Urine (Dipstick) Negative (Neg-Trace); Urobilinogen 0.2 mg/dL (Less than 2)
[2023-03-04 21:02] LABS: Clarity Hazy (Clear)
[2023-03-04 21:03] LABS: Bacteria/HPF 2+ HPF (None Seen); CAUTI Indications for Culture Dysuria,urgency,freq; RBC/HPF 0-3 HPF (0-3); Squamous Epithelial 0-3 HPF (0-3)
[2023-03-04 21:04] LABS: Urine Culture Reflex No No
[2023-03-04] MEDS ORDERED: cefTRIAXone (ROCEPHIN) 1 GM VIAL ONE (21:27)
[2023-03-04] MEDS ORDERED: Sodium Chloride 0.9% 100 ML ONE (21:27)
[2023-03-04] MEDS ORDERED: Labetalol HCl 100 MG/20 ML VIAL ONE (22:50)
== END 2023-03-04 22:50 | disposition home or self-care (01) ==
LOC: BURERS 19:55
DX: R07.89 Other chest pain (principal); R79.0 Abnormal level of blood mineral; E78.5 Hyperlipidemia, unspecified; I10 Essential (primary) hypertension; Z79.899 Other long term (current) drug therapy
CPT/HCPCS: 36415; 71045; 80053; 81001; 83880; 84484; 85025; 85379; 87077; 87086; 87186; 93005; 96365; 96375; J0696; J3490

== ENCOUNTER 2024-03-06 10:10 | Emergency (ER) | payer MEDICARE, OTHER | END 2024-03-06 11:05 | disposition home or self-care (01) | LOC: BURERS 10:10 | DX: S52.572A Other intraarticular fracture of lower end of left radius, initial encounter for closed fracture (principal); I10 Essential (primary) hypertension; W19.XXXA Unspecified fall, initial encounter | CPT/HCPCS: 29125 ==

== ENCOUNTER 2024-03-13 10:48 | Emergency (ER) | payer MEDICARE, OTHER | END 2024-03-13 11:33 | disposition home or self-care (01) | LOC: BURERS 10:48 | DX: S52.502D Unspecified fracture of the lower end of left radius, subsequent encounter for closed fracture with routine healing (principal); I10 Essential (primary) hypertension; I48.91 Unspecified atrial fibrillation; E16.2 Hypoglycemia, unspecified; E78.5 Hyperlipidemia, unspecified; W18.30XD Fall on same level, unspecified, subsequent encounter; Z95.0 Presence of cardiac pacemaker; Z86.73 Personal history of transient ischemic attack (TIA), and cerebral infarction without residual deficits; Z79.899 Other long term (current) drug therapy | CPT/HCPCS: 29125; 99283 ==

== ENCOUNTER 2024-03-23 19:39 | Emergency (ER) | payer MEDICARE, OTHER ==
[2024-03-23] MEDS ORDERED: Ketorolac Tromethamine 30 MG (1 mL) VIAL ONE (20:40)
[2024-03-23] MEDS ORDERED: Lorazepam 2 MG/ML VIAL ONE (20:40)
== END 2024-03-23 21:25 | disposition home or self-care (01) ==
LOC: BURERS 19:39
DX: S00.03XA Contusion of scalp, initial encounter (principal); M79.10 Myalgia, unspecified site; I10 Essential (primary) hypertension; E78.5 Hyperlipidemia, unspecified; I48.91 Unspecified atrial fibrillation; W19.XXXA Unspecified fall, initial encounter; Z79.899 Other long term (current) drug therapy
CPT/HCPCS: J1885; J2060; 96374; 96375

== ENCOUNTER 2024-09-11 11:45 | Emergency (ER) | payer MEDICARE, OTHER ==
[2024-09-11] MEDS ORDERED: Lidocaine 4% Patch ONE (11:58)
== END 2024-09-11 12:13 | disposition home or self-care (01) ==
LOC: BURERS 11:45
DX: M75.21 Bicipital tendinitis, right shoulder (principal); I10 Essential (primary) hypertension; I48.91 Unspecified atrial fibrillation; E16.2 Hypoglycemia, unspecified; E78.5 Hyperlipidemia, unspecified; Z95.0 Presence of cardiac pacemaker; Z86.73 Personal history of transient ischemic attack (TIA), and cerebral infarction without residual deficits; Z79.899 Other long term (current) drug therapy
CPT/HCPCS: 99283